=== PATIENT | female | born 1995 | race Hispanic/Latino ===

== ENCOUNTER 2016-09-06 18:59 | Emergency (ER) | payer SELFPAY ==
[2016-09-06 19:07] VITALS: BMI 28.3
[2016-09-06 19:11] VITALS: TEMP 98.4
--- NOTE | 2016-09-06 20:45 | ED PDOC ---
Arrival/HPI - General Chief Complaint: Flu-like Symptoms Time Seen by Provider: 09/06/16 19:16 Historian: Patient - History of Present Illness Narrative History of Present Illness (Text): 09/06/16 19:16 A 20 year old female presents to the emergency department complaining of body aches, sore throat, mild pain with swallowing and a cough for the past day. She states earlier today when cough she noticed some blood-tinged sputum so she decided to come to the emergency department for evaluation. Patient took Tylenol with minimal relief. Patient denies any shortness of breath, chest pain , abdominal pain, nausea, vomiting, urinary symptoms, or any other complaints at this time. Past Medical History - Provider Review Nursing Documentation Reviewed: Yes - Infectious Disease Hx of Infectious Diseases: None - Tetanus Immunization Tetanus Immunization: Unknown - Psychiatric Hx Substance Use: No - Anesthesia Hx Anesthesia: No Family/Social History - Physician Review Nursing Documentation Reviewed: Yes Family/Social History: Unknown Family HX Smoking Status: Never Smoked Hx Alcohol Use: No Hx Substance Use: No Allergies/Home Meds Allergies/Adverse Reactions: Allergies No Known Allergies Allergy (Verified 09/06/16 19:07) Home Medications: Home Meds Medication Instructions Recorded Confirmed No Known Home Med 09/06/16 09/06/16 Review of Systems - Physician Review All systems were reviewed & negative as marked: Yes - Review of Systems ENT: Sore Throat Respiratory: Cough, Sputum. absent: SOB Cardiovascular: absent: Chest Pain Gastrointestinal: absent: Abdominal Pain, Nausea, Vomiting Genitourinary Female: absent: Dysuria, Frequency, Hematuria, Urine Output Changes Musculoskeletal: Myalgias Physical Exam Vital Signs Reviewed: Yes Vital Signs Temp Pulse Resp BP Pulse Ox 09/06/16 19:10 98.4 F 86 18 112/69 98 Temperature: Afebrile Blood Pressure: Normal Pulse: Regular Respiratory Rate: Normal Appearance: Positive for: Well-Appearing, Non-Toxic, Comfortable Pain Distress: None Mental Status: Positive for: Alert and Oriented X 3 - Systems Exam Head: Present: Atraumatic, Normocephalic Pupils: Present: PERRL Conjunctiva: Present: Normal Mouth: Present: Moist Mucous Membranes Pharnyx: Present: Normal. No: ERYTHEMA Neck: Present: Normal Range of Motion Respiratory/Chest: Present: Clear to Auscultation, Good Air Exchange. No: Respiratory Distress, Accessory Muscle Use Cardiovascular: Present: Regular Rate and Rhythm, Normal S1, S2. No: Murmurs Abdomen: Present: Normal Bowel Sounds. No: Tenderness, Distention, Peritoneal Signs Back: Present: Normal Inspection Upper Extremity: Present: Normal Inspection. No: Cyanosis, Edema Lower Extremity: Present: Normal Inspection. No: Edema Neurological: Present: GCS=15, CN II-XII Intact, Speech Normal Skin: Present: Warm, Dry, Normal Color. No: Rashes Psychiatric: Present: Alert, Oriented x 3, Normal Insight, Normal Concentration Medical Decision Making ED Course and Treatment: 09/06/16 19:16 Impression: A 20 year old female with body aches, sore throat, dysphagia, cough with blood- tinged sputum. Differential Diagnosis included but are not limited to: bronchitis vs. pharyngitis vs. TB Plan: -- Chest X-ray -- Rapid Strep -- Reassess and disposition Prior Visits: Notes and results from previous visits were reviewed. The patient last presented to the emergency department on 12/15/14 for evaliatoon of sore throat. Progress Notes: 09/06/16 21:20 Rapid Strep is negative; CXR is normal - likely viral pharyngitis - will d/c to use nsaids or tylenol as needed and drink plenty of fluids. - Lab Interpretations Lab Results: Lab Results 09/06/16 20:16: Grp A Beta Strep Ag Negative I have reviewed the lab results: Yes - RAD Interpretation Radiology Orders: 09/06/16 20:16 CHEST TWO VIEWS (PA/LAT) [RAD] Stat - Scribe Statement The provider has reviewed the documentation as recorded by the Scribe Matty Spicer Provider Scribe Attestation: All medical record entries made by the Scribe were at my direction and personally dictated by me. I have reviewed the chart and agree that the record accurately reflects my personal performance of the history, physical exam, medical decision making, and the department course for this patient. I have also personally directed, reviewed, and agree with the discharge instructions and disposition. Disposition/Present on Arrival - Present on Arrival Any Indicators Present on Arrival: No History of DVT/PE: No History of Uncontrolled Diabetes: No Urinary Catheter: No History of Decub. Ulcer: No History Surgical Site Infection Following: None - Disposition Have Diagnosis and Disposition been Completed?: Yes Diagnosis: Sore throat Disposition: HOME/ ROUTINE Disposition Time: 21:15 Patient Plan: Discharge Condition: GOOD Additional Instructions: Take aleve twice daily and tylenol as needed. Delsym for cough. Drink plenty of fluids. Follow up in the medical clinic. Return to the emergency department if any new concerning symptoms. Referrals: [facility] at [facility] [place] [Outside] - Follow up with primary Forms: WORK NOTE
[2016-09-06 21:30] VITALS: BP 118/73; PULSE 74; RESP 16; O2SAT 99
--- NOTE | 2016-09-07 08:02 | RAD ---
HISTORY: coughed up blood COMPARISON: No prior. TECHNIQUE: Chest PA and lateral FINDINGS: LUNGS: No active pulmonary disease. PLEURA: No significant pleural effusion identified. No pneumothorax apparent. CARDIOVASCULAR: Normal. OSSEOUS STRUCTURES: No significant abnormalities. VISUALIZED UPPER ABDOMEN: Normal. OTHER FINDINGS: None. IMPRESSION: No active disease.
== END 2016-09-06 21:30 | disposition home or self-care (01) ==
LOC: ED 18:59
DX: J02.9 Acute pharyngitis, unspecified (principal)